=== PATIENT | female | born 1995 | race Caucasian/White ===

== ENCOUNTER 2016-10-04 05:38 | Day surgery (SDC) | payer BC, OTHER ==
[~2016-10-04] VITALS: Ht 170.2 cm; Wt 62.1 kg
[2016-10-04] VITALS (7 sets, daily range): BP systolic 115–128; BP diastolic 60–83
--- NOTE | ~2016-10-04 | O ---
[facility] [place] [address] OPERATIVE REPORT Name: RAYNA JONES Room #: 150-8 [facility]..#: [id number] Admission: 10/04/16 Attend Phys: Tariq Garza MD Discharge: Date of : 89 Report #: [id number] THIS REPORT FOR: //name// CC: Dr. Julia Garza DATE OF SERVICE: 10/04/2016 PATIENT OF: Dr. Tariq Garza, Dr. Dali Mc. PREOPERATIVE DIAGNOSES: Cholelithiasis, cholecystitis, biliary colic. POSTOPERATIVE DIAGNOSES: Cholelithiasis, cholecystitis, biliary colic. PROCEDURE: Laparoscopic cholecystectomy. SURGEON: Tariq Garza MD SENIOR [employer]ICATIONS SPECIALIST: Renae Rock RN ANESTHESIA: General. DESCRIPTION OF PROCEDURE: The patient was brought to the operating room and placed on operative table in the supine position. Sequential compression devices were in place for DVT prophylaxis. The patient underwent a general endotracheal anesthesia and the abdomen was then prepped and draped in a sterile fashion. Skin and subcutaneous tissue around the umbilicus was then infiltrated with 0.5% Marcaine and 1% Xylocaine in a 1:1 mixture. Infraumbilical skin incision was then performed using #11 scalpel blade. Hemostasis obtained using electrocautery. Dissection was carried down through the subcutaneous tissue to the fascia, which was then grasped between 2 Nishi clamps and incised with curved Freeman scissors. Peritoneum was entered and a pursestring suture of 0 Vicryl was then placed in the fascia. A 12 mm disposable Tristan port was then inserted through the opening and held into place with the pursestring suture. Pneumoperitoneum was obtained to a level of 10-15 mmHg. Laparoscope was inserted through this port and two lateral 5 mm Surgiport as well as an upper midline 12 mm Surgiport were then inserted all under direct visualization after infiltration with 0.5% Marcaine. Exploration of the abdomen was performed, which revealed a slightly dilated gallbladder. There are no other significant abnormalities. The gallbladder was then grasped and retracted superiorly and the cystic duct and artery were dissected free. The cystic artery was wrapped around the cystic duct and it was carefully dissected free, doubly clipped on each side and divided with the scissors. Three clips were then placed on the cystic duct near the cystic common bile duct junction and 2 clips on the neck of [address] [address] OPERATIVE REPORT Name: RAYNA JONES Room #: 150-8 [facility]..#: [id number] Admission: 10/04/16 Attend Phys: Tariq Garza MD Discharge: Date of : [birth year] Report #: [id number] the gallbladder and was divided with the scissors. The gallbladder was then dissected free from the bed using the hook electrocautery. Prior to completing the dissection, the gallbladder was retracted superiorly and the bed inspected for hemostasis, which was found to be intact. The gallbladder was then transected and brought out through the periumbilical port and sent as specimen to pathology. Port was then returned to the abdomen and the area was then copiously irrigated with warm saline solution, which was suctioned free and hemostasis was checked and found to be intact. Ports were then all removed under direct visualization, hemostasis intact at each port site. Pneumoperitoneum was released and the periumbilical port was then also removed under direct visualization, hemostasis intact at the port site as well. Periumbilical fascia was then closed using the 0 Vicryl pursestring suture. The upper midline fascia was then closed using a [id number] 0 Vicryl suture. The skin was then closed using interrupted vertical mattress 5-0 nylon sutures and the wound was dressed with Band-Aids. The patient was then awakened from the general endotracheal anesthesia, extubated, and taken to recovery room in good condition. Estimated blood loss was approximately 20 mL and the patient tolerated procedure well. All sponge, lap and instrument counts correct x2. <ELECTRONICALLY SIGNED> By: Tariq Garza MD 10/04/16 1547 [id number] [id number] Tariq Garza MD /nt
--- NOTE | ~2016-10-04 | S ---
[facility] [place] [address] SURGICAL PATH RPT PROCEDURE Name: GABBY JURADO Room #: DEP [facility] M.R.#: [id number] Admission: 10/04/16 Date of : 89 Discharge: 10/05/16 Report #: [id number] Path Case #: [id number] PATHOLOGY REPORT COLLECTION DATE: 10/04/2016 RECEIVED DATE: 10/04/2016 SUBMITTING PHYS: Dr. Tariq Garza OTHER PHYS: SPECIMEN(S) RECEIVED: A.Gallbladder * * * * * * * * * * * * FINAL DIAGNOSIS: Gallbladder, cholecystectomy: - Mild chronic cholecystitis. PATHOLOGIST: Ayse Art M.D. REPORT ELECTRONICALLY SIGNED BY: Ayse Art M.D. DATE/TIME: 10/07/2016 15:42 * * * * * * * * * * * * GROSS PATHOLOGY: Received in formalin labeled "Gabby Jurado gallbladder," is a 7.8 x 2.0 x 1.0 cm, previously opened gallbladder with pink-mendez serosal surfaces. Opening the gallbladder reveals a velvety, pink-mendez mucosa and an average wall thickness of 0.1 cm. Calculi are not present upon filtration of the specimen container and no masses are noted grossly. [employer] Official sections from the body and fundus are submitted along with the proximal margin in cassette A1. (CAA; 10/05/2016) CLINICAL HISTORY: Gallstones INITIAL CPT CODE(S): A; 71432 Professional services performed by [facility] at [facility] [address], [place] [address] Technical services performed by [facility] at [address] [place] [id number]. [facility] [address] [place] [address] SURGICAL PATH RPT PROCEDURE Name: GABBY JURADO Room #: DEP [facility] Taty#: [id number] Admission: 10/04/16 Date of : 89 Discharge: 10/05/16 Report #: [id number] Path Case #: [id number] [facility] [address] [address] PHONE: [phone] DIRECTOR: Moises Ahuja M.D. * * * END OF REPORT * * *
[~2016-10-04 05:38] MED LIST: BIRTH CONTROL PO; ZOLOFT50 MG PO
[2016-10-04] MEDS ORDERED: NORCO 5-325 TA1 EACH PO (15:40)
[2016-10-05 00:01] VITALS: BP 127/61
[2016-10-05 03:15] VITALS: BP 124/76
[2016-10-05 08:00] VITALS: BP 116/58
[2016-10-05 09:46] VITALS: BP 116/58
[2016-10-05 12:06] VITALS: BP 116/58
== END 2016-10-05 10:35 | disposition home or self-care (01) ==
LOC: TBA 05:38 → OR 05:38 → TBA 05:40 → OR 12:31 → 4N 16:12 → OR 10-05 10:35
DX: K80.10 Calculus of gallbladder with chronic cholecystitis without obstruction (principal); F32.9 Major depressive disorder, single episode, unspecified; F41.9 Anxiety disorder, unspecified; Z87.891 Personal history of nicotine dependence; M41.9 Scoliosis, unspecified
CPT/HCPCS: 50010; 50101; 50411; 50555; 50558; 51474; 51489; 52266; 53314; 56462; 56524; 56528; 62110; 62900; 70005